=== PATIENT | female | born 1985 | race Caucasian/White ===

== ENCOUNTER 2016-06-07 18:59 | Emergency (ER) | payer MEDICAID ==
[~2016-06-07] VITALS: Ht 170.2 cm; Wt 65.9 kg
[2016-06-07 19:16] VITALS: TEMP 98.1
[2016-06-07 21:04] LABS: INFLUENZA B NEGATIVE
[2016-06-07 21:42] VITALS: BP 108/68; PULSE 101
== END 2016-06-07 21:50 | disposition home or self-care (01) ==
LOC: COL.ER 18:59
PROVIDERS: Nurse Practitioner
DX: O99.512 Diseases of the respiratory system complicating pregnancy, second trimester (principal); J06.9 Acute upper respiratory infection, unspecified; O99.332 Smoking (tobacco) complicating pregnancy, second trimester; F17.210 Nicotine dependence, cigarettes, uncomplicated; Z3A.22 22 weeks gestation of pregnancy

== ENCOUNTER 2017-04-23 19:19 | Emergency (ER) | payer MEDICAID ==
[~2017-04-23] VITALS: Ht 170.2 cm; Wt 54.5 kg
[2017-04-23 19:20] VITALS: BP 135/78; TEMP 98.5
[2017-04-23] MEDS ORDERED: MICROGESTIN FE1 TA1 PO (19:23)
[2017-04-23 19:48] LABS: COLLECTION METHOD CLEAN CATCH
[2017-04-23 19:58] LABS: PH 6 (5-8); URINE APPEARANCE Hazy; URINE BACTERIA None Seen /hpf; URINE BILIRUBIN Negative (NEGATIVE); URINE BLOOD 3+ (NEGATIVE); URINE COLOR Yellow; URINE GLUCOSE Negative (NEGATIVE); URINE KETONE Negative (NEGATIVE); URINE LEUKOCYTE ESTERASE 1+ (NEGATIVE); URINE PROTEIN(semi-quant) 1+ (NEGATIVE); URINE RBC >50 /hpf; URINE UROBILINOGEN >=4.0 mg/dL (NEGATIVE)
[2017-04-23 20:00] LABS: URINE WBC 20-50 /hpf
[2017-04-23] MEDS ORDERED: PYRIDIUM200 M1 PO (20:30)
[2017-04-23] MEDS ORDERED: CEFTIN500 MG PO (20:30)
[2017-04-23 21:05] VITALS: PULSE 70
== END 2017-04-23 21:06 | disposition home or self-care (01) ==
LOC: COL.ER 19:19
PROVIDERS: Emergency Medicine
DX: N39.0 Urinary tract infection, site not specified (principal)

== ENCOUNTER → 2017-07-24 | Emergency (ER) | payer MEDICAID ==
[~2017-07-24] VITALS: Ht 170.2 cm; Wt 54.5 kg
[~2017-07-24] MED LIST: CEFTIN500 MG PO; MICROGESTIN FE1 TA1 PO; PYRIDIUM200 M1 PO
[2017-07-24 15:38] VITALS: BP 121/76; PULSE 114; TEMP 98.7
== END ==
LOC: COL.ER 15:29
DX: J02.9 Acute pharyngitis, unspecified (principal); F17.210 Nicotine dependence, cigarettes, uncomplicated
CPT/HCPCS: J1885

== ENCOUNTER 2017-09-13 15:43 | Emergency (ER) | payer MEDICAID ==
[~2017-09-13] VITALS: Ht 170.2 cm; Wt 54.5 kg
[2017-09-13 15:45] VITALS: TEMP 98.1
[2017-09-13 16:46] LABS: COLLECTION METHOD CLEAN CATCH
[2017-09-13 16:48] LABS: BASO # 0.1 (0.0-0.2); BASO % 0.7 % (0.0-2.0); EOS # 0.1 (0.0-0.7); EOS % 1.6 % (0-4.0); GRAN # 5.6 (1.4-6.5); GRAN % 65.3 % (42.2-75.2); HEMATOCRIT 42.6 % (37.0-47.0); LYMPH # 2.2 (1.2-3.4); LYMPH % 24.9 % (20.0-51.0); MEAN CELL VOLUME 88 fl (80.0-100.0); MEAN CORPUSCULAR HEMOGLOBIN 29 pg (27.0-31.0); MEAN CORPUSCULAR HGB CONC 33 g/dl (33.0-37.0); MEAN PLATELET VOLUME 11.2 fl (7.4-10.4); MONO # 0.6 (0.1-0.6); MONO % 7.3 % (1.7-9.3); PLATELET COUNT 261 K/mm3 (130-400); RED BLOOD COUNT 4.84 M/mm3 (4.10-5.30); REDCELL DISTRIBUTION WIDTH-CV 12.6 % (11.5-14.5)
[2017-09-13 16:53] LABS: MUCOUS Present /lpf; PH 6 (5-8); SQUAMOUS EPITHELIAL 0-2 /hpf; URINE APPEARANCE Clear; URINE BACTERIA None Seen /hpf; URINE BILIRUBIN Negative (NEGATIVE); URINE BLOOD 3+ (NEGATIVE); URINE COLOR Yellow; URINE GLUCOSE Negative (NEGATIVE); URINE KETONE Negative (NEGATIVE); URINE LEUKOCYTE ESTERASE Negative (NEGATIVE); URINE NITRATE Negative (NEGATIVE); URINE PROTEIN(semi-quant) Negative (NEGATIVE); URINE RBC 0-2 /hpf; URINE UROBILINOGEN Negative (NEGATIVE)
[2017-09-13 16:58] LABS: CALCIUM 8.9 mg/dL (8.4-10.2); CREATININE, serum 0.7 mg/dL (0.52-1.25); POTASSIUM 3.7 mmol/L (3.4-5.0)
[2017-09-13] MEDS ORDERED: ALBUTEROL0.83 MG/ML IH (18:48)
[2017-09-13 18:59] VITALS: BP 116/73; PULSE 113
== END 2017-09-13 19:00 | disposition home or self-care (01) ==
LOC: COL.ER 15:43
PROVIDERS: Physician Assistant
DX: J06.9 Acute upper respiratory infection, unspecified (principal); F17.210 Nicotine dependence, cigarettes, uncomplicated

== ENCOUNTER 2018-12-12 13:35 | Emergency (ER) | payer MEDICAID ==
[~2018-12-12] VITALS: Ht 170.2 cm; Wt 54.5 kg
[~2018-12-12 13:35] MED LIST changes: +ALBUTEROL0.83 MG/ML IH
[2018-12-12 13:39] VITALS: BP 123/82
[2018-12-12] MEDS ORDERED: AMOXICILLIN875 MG PO ×2 (14:09→14:33)
[2018-12-12] MEDS ORDERED: PREDNISONE20 MG PO ×2 (14:09→14:33)
[2018-12-12] MEDS ORDERED: PROAIR HFA0.09 MG/AC IH ×2 (14:09→14:33)
[2018-12-12 14:48] VITALS: PULSE 83; TEMP 97.2
== END 2018-12-12 14:48 | disposition home or self-care (01) ==
LOC: COL.ER 13:35
DX: J06.9 Acute upper respiratory infection, unspecified (principal); J20.9 Acute bronchitis, unspecified; H65.02 Acute serous otitis media, left ear; F17.210 Nicotine dependence, cigarettes, uncomplicated

== ENCOUNTER 2019-06-27 20:10 | Emergency (ER) | payer MEDICAID ==
[~2019-06-27] VITALS: Ht 170.2 cm; Wt 54.5 kg
[~2019-06-27 20:10] MED LIST changes: +AMOXICILLIN875 MG PO; +PREDNISONE20 MG PO; +PROAIR HFA0.09 MG/AC IH
[2019-06-27 20:14] VITALS: BP 135/82; TEMP 97.5
[2019-06-27 22:30] VITALS: PULSE 72
== END 2019-06-27 22:35 | disposition home or self-care (01) ==
LOC: COL.ER 20:10
DX: H69.91 Unspecified Eustachian tube disorder, right ear (principal); F17.210 Nicotine dependence, cigarettes, uncomplicated

== ENCOUNTER 2020-06-02 02:39 | Outpatient (CLI) | payer MEDICAID ==
[~2020-06-02] VITALS: Ht 162.6 cm; Wt 73.2 kg
--- NOTE | 2020-06-02 02:45 | NUR ---
Pt arrives on unit ambulatory with hafsa. States ctx that began at 2300 that have increased in frequency and intensity. Denies LOF, vaginal bleeding, and states decreased movement since onset of ctx. Denies covid s/s and exposures. Changed into clean gown. EFM and toco applied. VSS. Admission assessment completed. ANTONY Daniel RN / with BBJASONI. Bed locked in low position. Call light within reach. Updated on POC. No questions or concerns at this time.
[2020-06-02 03:00] VITALS: BP 132/83; PULSE 118; TEMP 98.1
[2020-06-02 04:00] VITALS: BP 117/70; PULSE 106
--- NOTE | 2020-06-02 04:00 | NUR ---
Repeat SVE with no changes noted. Discussed plan of care options, call dr now for discharge order or monitor for an additional hour recheck then call . Pt and boyfriend decide they would rather go home now.
== END 2020-06-02 04:15 | disposition home or self-care (01) ==
LOC: LDRO 02:39 → LDR 02:45 → LDRO 04:15
DX: O26.93 Pregnancy related conditions, unspecified, third trimester (principal); Z3A.38 38 weeks gestation of pregnancy
CPT/HCPCS: OP

== ENCOUNTER 2020-06-08 16:29 | Inpatient (IN) | payer MEDICAID ==
[~2020-06-08] VITALS: Ht 170.2 cm; Wt 75.0 kg
[2020-06-08] VITALS (25 sets, daily range): BP systolic 111–171; BP diastolic 57–86; PULSE 81–105; TEMP 97.4–98.1
[~2020-06-08 16:29] MED LIST changes: -IBU600 MG PO
--- NOTE | 2020-06-08 16:40 | NUR ---
Patient ambulatory onto unit with FOB at side. Patient reports SROM at 1545. Patient reports good movement. Reports occasional contractions, denies vaginal bleeding. , 39.1wks. GBS-. Denies or medical complications. EFMs on, VS taken. AmniTrace positive. SVE /-1, large amount of clear fluid noted with exam. notified at 1653, admission orders received.
[2020-06-08 17:31] LABS: BASO # 0.1 (0.0-0.2); BASO % 0.5 % (0.0-2.0); EOS # 0.1 (0.0-0.7); EOS % 0.8 % (0-4.0); GRAN # 11.8 (1.4-6.5); GRAN % 74.3 % (42.2-75.2); HEMOGLOBIN 10.4 g/dl (12.5-16.0); LYMPH # 2.5 (1.2-3.4); LYMPH % 15.8 % (20.0-51.0); MEAN CELL VOLUME 83 fl (80.0-100.0); MEAN CORPUSCULAR HEMOGLOBIN 26 pg (27.0-31.0); MEAN CORPUSCULAR HGB CONC 32 g/dl (33.0-37.0); MEAN PLATELET VOLUME 11.5 fl (7.4-10.4); MONO # 1.2 (0.1-0.6); MONO % 7.4 % (1.7-9.3); PLATELET COUNT 295 K/mm3 (130-400); RED BLOOD COUNT 3.96 M/mm3 (4.10-5.30); REDCELL DISTRIBUTION WIDTH-CV 14.2 % (11.5-14.5)
--- NOTE | 2020-06-08 17:45 | NUR ---
Roles to bedside. SVE 5-/80/-1. Plan of care discussed. Questions answered.
--- NOTE | 2020-06-08 17:45 | NUR ---
1730: Patient requesting epidural placement. Patient sitting up at edge of bed for placement. Paot SIMPSON notified, to bedside. 1736: Lidocaine. 1738: Single Shot. Epidural Catheter. 1740: Test Dose, no adverse reaction noted. 1745: Patient repositioned to right tilt.
--- NOTE | 2020-06-08 18:30 | NUR ---
Report to Debbie RN to assume care of patient at this time.
--- NOTE | 2020-06-08 20:48 | NUR ---
2047- SVE by this RN 2. Dr. Monaco notified and on way to the hospital for pending delivery. 2102- Dr. Monaco at the bedside. Pt set up for delivery. 2106- of viable male . [place] placed on pt's abdomen. Cords clamped and cut. 2109- of placenta. Pitocin started at 333ml/hr per order and protocol. Fundus firm and lochia WNL.
--- NOTE | 2020-06-09 | NUR ---
Pt up to the bathroom with assist and use of the wheelchair for transfer. Pt was able to void. Niurka-care done. Pt transferred to room 218 via wheelchair. Oriented pt to room, bed and call light within reach. Plan of care reviewed with pt and at the bedside.
[2020-06-09 04:34] VITALS: BP 113/61; PULSE 91; TEMP 98.7
[2020-06-09 07:50] VITALS: BP 113/69; PULSE 93; TEMP 97.9
--- NOTE | 2020-06-09 10:25 | NUR ---
Initial visit; Parents thanked Fishing Boat Captain for offering congratulations and God's blessings for the of their son. Fishing Boat Captain thanked family for choosing [facility].
[2020-06-09 12:30] VITALS: BP 112/71; PULSE 89; TEMP 97.8
[2020-06-09] MEDS ORDERED: IBU600 MG PO (12:37)
[2020-06-09 18:00] VITALS: BP 113/74; PULSE 86; TEMP 97.7
[2020-06-09 20:00] VITALS: BP 132/79; PULSE 84; TEMP 97.9
--- NOTE | 2020-06-09 22:00 | NUR ---
2200 DISMISSAL INSTRUCTIONS GIVEN. NO QUESTIONS AT THIS TIME. 2225 HOME PER AMB ACC BY AND BABY.
== END 2020-06-09 22:25 | disposition home or self-care (01) | DRG 807 ==
LOC: LDRO 16:29 → LDR 16:40 → OB 16:40
PROVIDERS: ADMIT Obstetrics & Gynecology
PROC: 10E0XZZ Delivery of Products of Conception, External Approach (ICD-10-PCS; principal; 2020-06-08)
DX: O99.334 Smoking (tobacco) complicating childbirth (principal); Z37.0 Single live birth; F17.200 Nicotine dependence, unspecified, uncomplicated; O43.893 Other placental disorders, third trimester; Z3A.39 39 weeks gestation of pregnancy
CPT/HCPCS: J2590; J2795; J7120

== ENCOUNTER → 2020-06-08 | Outpatient (CLI) | payer MEDICAID ==
[~2020-06-08] MED LIST changes: +IBU600 MG PO
== END ==
LOC: ZCOL.LAB 12:34
DX: Z20.822 Contact with and (suspected) exposure to COVID-19 (principal)

== ENCOUNTER 2023-11-13 19:15 | Emergency (ER) | payer SELFPAY ==
[~2023-11-13] VITALS: Ht 170.2 cm; Wt 59.1 kg
[~2023-11-13 19:15] MED LIST changes: +IBU600 MG PO
[2023-11-13 19:21] VITALS: BP 133/73; TEMP 98.4
[2023-11-13 19:57] VITALS: PULSE 94
== END 2023-11-13 19:57 | disposition home or self-care (01) ==
LOC: COL.ER 19:15
DX: S60.511A Abrasion of right hand, initial encounter (principal); F17.210 Nicotine dependence, cigarettes, uncomplicated; W55.03XA Scratched by cat, initial encounter